=== PATIENT | male | born 1970 | race Hispanic/Latino ===

== ENCOUNTER → 2025-03-25 09:00 | Outpatient (CLI) | payer OTHER, SELFPAY | PROVIDERS: PCP Physician Assistant Medical; Visit Provider Surgery | DX: S31.109A Unspecified open wound of abdominal wall, unspecified quadrant without penetration into peritoneal cavity, initial encounter (principal); L98.8 Other specified disorders of the skin and subcutaneous tissue; K43.2 Incisional hernia without obstruction or gangrene; I10 Essential (primary) hypertension; Z93.3 Colostomy status; Z86.718 Personal history of other venous thrombosis and embolism; Z86.711 Personal history of pulmonary embolism; Z87.891 Personal history of nicotine dependence | CPT/HCPCS: 11042; 87070; 87075; 87077; 87147; 87186; 87205; 99203; 99213 ==

== ENCOUNTER → 2025-03-31 09:09 | Outpatient (CLI) | payer OTHER, SELFPAY | PROVIDERS: PCP Physician Assistant Medical; Referring Provider Physician Assistant Medical; Visit Provider Surgery | DX: T81.89XA Other complications of procedures, not elsewhere classified, initial encounter (principal); S31.109A Unspecified open wound of abdominal wall, unspecified quadrant without penetration into peritoneal cavity, initial encounter; K43.2 Incisional hernia without obstruction or gangrene; Z93.3 Colostomy status | CPT/HCPCS: 11042 ==

== ENCOUNTER → 2025-03-31 09:52 | Outpatient (CLI) | payer OTHER, SELFPAY ==
--- NOTE | 2025-03-31 09:54 | DI.CT.S_ITS ---
PROCEDURE: CT ABDOMEN PELVIS W CON INDICATIONS: Non-healing wound abd, hrnia TECHNIQUE: After the administration of intravenous contrast, axial sections acquired from the lung bases to the pubic symphysis. Coronal and sagittal reformats were performed. For radiation dose reduction, the following was used: automated exposure control, adjustment of mA and/or kV according to patient size. COMPARISON: Outside Facility, CT, CT ABDOMEN PELVIS W CON, 07/22/2024, 12:34. FINDINGS: Image quality: Diagnostic. Lower Chest: Right base platelike atelectatic change. Trace pericardial effusion. ABDOMEN: Liver: No solid mass. Gallbladder: No wall thickening or calcified stones. Biliary ducts: No biliary dilation. Pancreas: Normal size and morphology without visible ductal dilatation or inflammation. Spleen: Mild splenomegaly at 14.3 cm in AP diameter. Adrenal Glands: No adrenal nodules. Kidneys and Ureters: Symmetric enhancement. Punctate nonobstructing right lower pole and left upper pole intrarenal calculi. No hydronephrosis. No solid mass. Normal ureters. Stomach and Bowel: Partial descending colon resection and left lower quadrant colostomy present. Normal quantity of solid stool in the proximal colon. No suspicious colon wall thickening. Occasional diverticulosis. The appendix is surgically absent. Stable doff Sadie's pouch appears normal. Stomach and small bowel loops are normal caliber. Peritoneum: Interval resolution moderate ascites seen on prior exams. Minor residual fat stranding along the anterior abdominal wall just left of midline. No free air or drainable intraperitoneal fluid collection. Ventral Wall: There is a midline incision. The upper portion is healed. There is a small soft tissue diastasis/defect at the umbilical and infraumbilical region. This soft tissue defect measures about 2.7 x 1.5 cm in diameter. There is no true herniation of intraperitoneal contents, the rather a separation of the overlying subcutaneous tissue. There is no surrounding inflammation or fat stranding. There is mild skin thickening at the margins. Inferior to this, midline incision has healed. A tiny amount of peristomal fat to the left of the bowel loop is evident. No other significant peristomal hernia. No other ventral hernia. Abdominal Nodes: No retroperitoneal or mesenteric adenopathy by size criteria. Vessels: The abdominal aorta, IVC, and portal vein are of normal caliber. PELVIS: Pelvic Organs: Unremarkable. Bladder: No stones or wall thickening. Pelvic Nodes: No enlarged lymph nodes. Miscellaneous: No inguinal hernias are seen. Bones: No aggressive osseous abnormality. Degenerative spondylosis throughout the spine. Straightening of the normal lumbar lordosis. IMPRESSION: A periumbilical wound/diastasis is present as described. No evidence of active inflammation or associated fluid collection. Resolution of the majority of intraperitoneal inflammation and ascites. Incidental bilateral nonobstructing intrarenal calculi. Dictated by: Tresa Farooq M.D. on 04/07/2025 at 9:06 Approved by: Tresa Farooq M.D. on 04/07/2025 at 9:22
[2025-03-31 10:33] LABS: Estimated Glomerular Filt Rate > 60 mL/min (>60)
== END ==
PROVIDERS: PCP Physician Assistant Medical; Referring Provider Surgery; Visit Provider Surgery
DX: S31.105A Unspecified open wound of abdominal wall, periumbilic region without penetration into peritoneal cavity, initial encounter (principal); K43.2 Incisional hernia without obstruction or gangrene; N20.0 Calculus of kidney; R16.1 Splenomegaly, not elsewhere classified; X58.XXXA Exposure to other specified factors, initial encounter; Z90.49 Acquired absence of other specified parts of digestive tract; Z93.3 Colostomy status
CPT/HCPCS: 11042; 36415; 74177; 82565; Q9967

== ENCOUNTER → 2025-04-07 10:22 | Outpatient (CLI) | payer OTHER, SELFPAY | LOC: WC 10:23 | PROVIDERS: PCP Physician Assistant Medical; Referring Provider Physician Assistant Medical; Visit Provider Surgery | DX: T81.89XA Other complications of procedures, not elsewhere classified, initial encounter (principal); S31.109A Unspecified open wound of abdominal wall, unspecified quadrant without penetration into peritoneal cavity, initial encounter; Z93.3 Colostomy status; K43.2 Incisional hernia without obstruction or gangrene | CPT/HCPCS: 99213 ==

== ENCOUNTER → 2025-04-22 11:31 | Outpatient (CLI) | payer OTHER, SELFPAY | PROVIDERS: PCP Physician Assistant Medical; Referring Provider Physician Assistant Medical; Visit Provider Surgery | DX: T81.31XA Disruption of external operation (surgical) wound, not elsewhere classified, initial encounter (principal); S31.109A Unspecified open wound of abdominal wall, unspecified quadrant without penetration into peritoneal cavity, initial encounter; Z93.3 Colostomy status; Z87.891 Personal history of nicotine dependence | CPT/HCPCS: 11042; 99213 ==

== ENCOUNTER → 2025-05-05 08:39 | Outpatient (CLI) | payer OTHER, SELFPAY | LOC: WC 08:40 | PROVIDERS: PCP Physician Assistant Medical; Referring Provider Physician Assistant Medical; Visit Provider Surgery | DX: T81.30XA Disruption of wound, unspecified, initial encounter (principal); S34.109A Unspecified injury to unspecified level of lumbar spinal cord, initial encounter; Z93.3 Colostomy status; K43.2 Incisional hernia without obstruction or gangrene | CPT/HCPCS: 11042 ==

== ENCOUNTER → 2025-05-19 10:54 | Outpatient (CLI) | payer OTHER, SELFPAY ==
--- NOTE | 2025-05-19 10:55 | DI.RAD.S_ITS ---
PROCEDURE: FL BARIUM ENEMA INDICATIONS: Colostomy present COMPARISON: [facility], CT, CT ABDOMEN PELVIS W CON, 03/31/2025, 11:15. FINDINGS: KUB: Preprocedural bobbin winder tender film demonstrates a normal bowel gas pattern. No suspicious abdominal calcifications. Left lower quadrant ostomy in place. Moderate stool burden throughout the colon. Visualized solid organ contours appear normal in size. No suspicious bony lesions. Colon: Contrast opacification of the rectal stump. On the final images, there is a area of thin wispy contracts extending from the distal aspect of the stump. Recommend correlation with surgical report. No definite findings concerning for stricture otherwise. IMPRESSION: Opacification of the rectal stump as described above. Dictated by: Darrius Salas M.D. on 05/19/2025 at 13:59 Approved by: Darrius Salas M.D. on 05/19/2025 at 14:03
== END ==
PROVIDERS: PCP Physician Assistant Medical; Visit Provider Radiology Diagnostic Radiology
DX: Z93.3 Colostomy status (principal)
CPT/HCPCS: 74270

== ENCOUNTER → 2025-05-19 16:17 | Outpatient (CLI) | payer OTHER, SELFPAY | PROVIDERS: PCP Physician Assistant Medical; Referring Provider Physician Assistant Medical; Visit Provider Physician Assistant | DX: T81.31XA Disruption of external operation (surgical) wound, not elsewhere classified, initial encounter (principal); S31.109A Unspecified open wound of abdominal wall, unspecified quadrant without penetration into peritoneal cavity, initial encounter; Z93.3 Colostomy status | CPT/HCPCS: 97597; 99213 ==

== ENCOUNTER 2025-05-20 09:09 | Day surgery (SDC) | payer OTHER, SELFPAY ==
--- NOTE | 2025-05-20 | PATH_ITS ---
[facility] Accession Number: [id number] No. of containers..01 Tissue . 01 Material submitted: . colon - COLON, DESCENDING POLYP . 01 Diagnosis: COLON, DESCENDING POLYP : Hyperplastic polyp. [facility] 05/26/2025 1624 Local . 01 Electronically signed: . Teja Nunez MD, Pathologist NPI- [id number] . 01 Gross description: . COLON,DESCENDING POLYP : Received in formalin is 1 fragment(s) of rivera, soft tissue measuring 0.3 x 0.3 x 0.1 cm submitted entirely in 1 cassette(s) /[facility] 05/26/2025 1624 Local . 01 Pathologist provided ICD-10: K63.5 . 01 CPT . 453866 Specimen Comment: A courtesy copy of this report has been sent to [facility] Pathology Performed at: [address] [facility] [id number] MD Teja Nunez MD Phone: [phone]
[2025-05-20 09:46] VITALS: BP 123/80; PULSE 81; RESP 16; TEMP 36.3; O2SAT 99
[2025-05-20] MEDS: LACTATED RINGERS 1,000 ML 42 ML IV (10:05)
--- NOTE | 2025-05-20 10:54 | PM.HP.IH.1 ---
History of Present Illness History of Present Illness Date Patient Seen: 05/20/25 Time Patient Seen: 10:54 Chief complaint: SDC Narrative: 54-year-old male patient had sigmoid colectomy with descending colostomy and end rectal pouch approximately 11 months ago for diverticulitis. He needs a screening colonoscopic exam prior to colostomy closure being performed at [facility] by Dr. Jeff Crisostomo. Patient states the prep was successful. The he has no family history for colon cancer. His ostomy has been functioning well. He notices no blood in the effluent. [facility] Medical History (Updated 05/20/25 @ 10:58 by Gaurav Rosario MD) Tobacco use disorder, moderate, in sustained remission, dependence Pulmonary embolism Social History Smoking Status: Former smoker alcohol intake: current Meds Home Medications and Allergies Home Medications ?Medication ?Instructions ?Recorded ?Confirmed ?Type gabapentin 300 mg capsule 300 mg PO BEDTIME 04/15/25 05/20/25 History metoprolol tartrate 25 mg tablet 12.5 mg PO BID 04/15/25 05/20/25 History apixaban 5 mg tablet (Eliquis) 5 mg PO BID 05/20/25 05/20/25 History Allergies Allergy/AdvReac Type Severity Reaction Status Date / Time No Known Drug Allergies Allergy Verified 05/20/25 09:35 Exam Vital Signs (past 8 hours): - 05/20/25 09:46 Temperature 97.3 F L Pulse Rate 81 Respiratory Rate 16 Blood Pressure 123/80 Pulse Oximetry 99 Oxygen Delivery Method Room Air Oxygen Delivery Method Room Air Const General: comfortable Orientation: alert and oriented x3 Resp Effort & Inspection: normal respiratory effort and able to speak in complete sentences Cardio Rate: regular rate GI Other: LLQ ostomy, abd soft, non-tender Extrem General: normal to inspection Assessment & Plan Assessment and plan (1) Encounter for screening colonoscopy: Status: Acute Assessment & Plan narrative: Needs screening colonoscopy prior to colostomy closure by Dr. Jeff Crisostomo MD, phone [phone], fax [phone]. Plan colonoscopy. The risks, benefits and options regarding the procedure were explained to the patient in detail. Risk discussion included but not limited to bleeding, perforation and missed lesions. The patient was encouraged to ask questions and they were answered to their satisfaction. The patient understands and is agreeable to proceed. Time-Based Coding :: [TOTAL MINUTES] spent with patient and on the chart (including review of chart, obtaining history, exam, reviewing outside data, placing orders, documenting exam and treatment plan, and counseling patient) on [DATE]. [employer] Document charge(s): Yes
--- NOTE | 2025-05-20 11:16 | P.OP.COLON_ITS ---
Operative Date/Time/Diagnoses Date of procedure: 05/20/25 Time of procedure: 12:28 Pre-op diagnosis: S/P colostomy for diverticulitis, needs screening colonoscopy prior to colostomy closure Post-op diagnosis: same Procedure & Clinicians Study performed: Colonoscopy Same procedure(s) as scheduled: Yes Indications: 54-year-old male patient status post sigmoid colectomy with descending colostomy and end rectal pouch for diverticulitis. He is scheduled to have colostomy reversal by Dr. Jeff Crisostomo at [facility]. This study is being performed to screen the colon and rectal pouch prior to colostomy closure. Patient has a negative family history for colon cancer. Surgeon: Gaurav Rosario Procedure Notes SCOAP/Timeout: Performed Procedure in detail: Patient placed in left lateral recumbent position. Time out was performed. Procedural sedation was administered by anesthesia. Study was begun by scoping the end rectal pouch. Examination began with a thorough inspection of the perianal area. There was no evidence of fissures, fistulae, external hemorrhoids or cutaneous malignancy. The colonoscope was then placed into the rectum and the lumen was insufflated with carbon dioxide. Digital exam revealed a large impaction. This was removed with digital disimpaction. The rectal prep was poor with significant volume of liquid and solid stool. Given this limitation, no significant mass or polyp was appreciated. There was approximately 25cm of rectosigmoid remaining. Retroflexion exam in the rectum demonstrated no significant pathology. Once the rectum was surveyed, our attention was turned to the colonosocpy portion via the stoma. The scope was then placed into the LLQ stoma and carefully advanced forward. Ultimately the cecum was intubated and confirmed by identification of the ileocecal valve, the appendiceal orifice and the confluence of the taenia. The scope was then slowly withdrawn examining the colon thoroughly in all directions. ?The colonoscopy was notable for the following: ?1. Quality of the preparation-poor, significant liquid and semi-solid stool, extensive irrigation and suction required ?2. Single diverticulum identified in distal sigmoid colon near colostomy. 3. Several small polyps, 3mm, benign appearing, in distal sigmoid colon. Unable to remove due to location in SQ colon near end of colostomy and inability to insufflate with carbon dioxide. Recommend repeat surveillance exam in 5-7 years. It is possible these polyps will be removed with distal colon during reversal. Reversal will assist with future polypectomy. Scope withdrawal time: 11 minutes Findings: divertiulosis and polyp(s) (3mm, benign appearing, distal descending/ sigmoid colon) Specimen(s): none sent Complications: none Post-procedure Recommendations: Colonoscopy in 5 years Follow up: as needed Disposition: PACU
[2025-05-20 12:15] VITALS: BP 102/80; PULSE 86; RESP 15; TEMP 37.1; O2SAT 98
[2025-05-20 12:20] VITALS: BP 112/77; PULSE 79; RESP 17; TEMP 37; O2SAT 98
[2025-05-20 12:27] VITALS: BP 104/79; PULSE 89; RESP 16; TEMP 37; O2SAT 98
== END 2025-05-20 12:56 | disposition home or self-care (01) ==
PROVIDERS: PCP Family Medicine; Referring Provider Surgery; Visit Provider Surgery
PROC: 0DJD8ZZ Inspection of Lower Intestinal Tract, Via Natural or Artificial Opening Endoscopic (ICD-10-PCS; CPT 45378; principal; 2025-05-20 10:45)
DX: Z12.11 Encounter for screening for malignant neoplasm of colon (principal); Z93.3 Colostomy status; Z87.891 Personal history of nicotine dependence; K63.5 Polyp of colon; K57.30 Diverticulosis of large intestine without perforation or abscess without bleeding
CPT/HCPCS: 44388; 45330; J2704

== ENCOUNTER → 2025-06-02 11:30 | Outpatient (CLI) | payer OTHER, SELFPAY | PROVIDERS: PCP Family Medicine; Referring Provider Family Medicine; Visit Provider Surgery | DX: T81.31XA Disruption of external operation (surgical) wound, not elsewhere classified, initial encounter (principal); S31.109A Unspecified open wound of abdominal wall, unspecified quadrant without penetration into peritoneal cavity, initial encounter; Z93.3 Colostomy status | CPT/HCPCS: 11042 ==

== ENCOUNTER → 2025-06-16 12:04 | Outpatient (CLI) | payer OTHER, SELFPAY | LOC: WC 12:05 | PROVIDERS: PCP Family Medicine; Referring Provider Family Medicine; Visit Provider Surgery | DX: T81.89XA Other complications of procedures, not elsewhere classified, initial encounter (principal); S31.109A Unspecified open wound of abdominal wall, unspecified quadrant without penetration into peritoneal cavity, initial encounter; Z93.3 Colostomy status | CPT/HCPCS: 11042; 99213 ==

== ENCOUNTER → 2025-08-04 10:38 | Outpatient (CLI) | payer OTHER, SELFPAY | LOC: WC 10:39 | PROVIDERS: PCP Family Medicine; Referring Provider Family Medicine; Visit Provider Surgery | DX: K43.2 Incisional hernia without obstruction or gangrene (principal); Z93.3 Colostomy status; S31.109D Unspecified open wound of abdominal wall, unspecified quadrant without penetration into peritoneal cavity, subsequent encounter; T81.31XD Disruption of external operation (surgical) wound, not elsewhere classified, subsequent encounter; I10 Essential (primary) hypertension; Z87.891 Personal history of nicotine dependence | CPT/HCPCS: 99211; 99213 ==

== ENCOUNTER → 2025-09-10 13:24 | Outpatient (CLI) | payer OTHER, SELFPAY | LOC: WC 13:24 | PROVIDERS: PCP Family Medicine; Referring Provider Family Medicine; Visit Provider Surgery | DX: S31.109D Unspecified open wound of abdominal wall, unspecified quadrant without penetration into peritoneal cavity, subsequent encounter (principal) | CPT/HCPCS: 99212; 99213 ==